=== PATIENT | male | born 1990 | race Caucasian/White ===

== ENCOUNTER 2019-04-25 23:12 | Emergency (ER) | payer BC, OTHER ==
[~2019-04-25] VITALS: Ht 177.8 cm; Wt 70.3 kg
[2019-04-25] MEDS ORDERED: LACTATED RINGERS 1,000 ML IV ONE (23:37)
[2019-04-25 23:59] LABS: BASOPHILS % (AUTO) 0 % (0-10); EOSINOPHILS # (AUTO) 0.2 10^3/uL (0.0-0.3); EOSINOPHILS % (AUTO) 2 % (0-10); HEMATOCRIT 46 % (40-54); HEMOGLOBIN 15.5 G/DL (13.3-17.7); LYMPHOCYTES # (AUTO) 1.5 X 10^3 (1.0-4.0); LYMPHOCYTES % (AUTO) 16 % (12-44); MEAN CORPUSCULAR HEMOGLOBIN 28 PG (25-34); MEAN CORPUSCULAR HGB CONC 34 G/DL (32-36); MEAN CORPUSCULAR VOLUME 82 FL (80-99); MEAN PLATELET VOLUME 9.4 FL (7.4-10.4); MONOCYTES # (AUTO) 0.8 X 10^3 (0.0-1.0); MONOCYTES % (AUTO) 8 % (0-12); NEUTROPHILS % (AUTO) 74 % (42-75); PLATELET COUNT 229 10^3/uL (130-400); RED CELL DISTRIBUTION WIDTH 13.4 % (10.0-14.5); WHITE BLOOD COUNT 9.5 10^3/uL (4.3-11.0)
[2019-04-26 00:21] LABS: ALANINE AMINOTRANSFERASE 28 U/L (0-55); ALBUMIN 4.4 GM/DL (3.2-4.5); ALKALINE PHOSPHATASE 73 U/L (40-136); BILIRUBIN,TOTAL 0.3 MG/DL (0.1-1.0); BUN/CREATININE RATIO 14; CALCIUM 9.4 MG/DL (8.5-10.1); CARBON DIOXIDE 23 MMOL/L (21-32); CHLORIDE 103 MMOL/L (98-107); CREATININE SERUM 1.02 MG/DL (0.60-1.30); GFR ESTIMATED > 60; GLUCOSE 95 MG/DL (70-105); MAGNESIUM 1.6 MG/DL (1.6-2.4); POTASSIUM 3.9 MMOL/L (3.6-5.0); SODIUM 137 MMOL/L (135-145); TOTAL PROTEIN 7.5 GM/DL (6.4-8.2)
--- NOTE | 2019-04-26 00:27 | ED Cardiac General ---
History of Present Illness General Chief Complaint: Dizziness/Syncope Stated Complaint: LIGHT HEADED,SWEATY, SHAKING, NAUSEA Nursing Triage Note: AMBULATORY TO ED ROOM 5 WITH C/O NAUSEA, SHAKY, DIZZY, RAPID HEART RATE WHILE SITTING AT WORK AT 2000. INCREASED STRESSED LATELY WITH BABY IN NICU. TOOK CAFFEINE PILLS APPROX 1600, BUT STATES HE TAKES THEM OFTEN. Source: patient Exam Limitations: no limitations History of Present Illness Date Seen by Provider: Apr 25, 2019 Time Seen by Provider: 23:26 Initial Comments This 28-year-old young man presents to the emergency room with complaints of palpitations and racing heart that started at approximately 20:00. He was sitting at his desk at the time. He suddenly felt nauseated, shaky, sweating, slightly faint, and had sensation of racing heart. His left arm felt a little tight in route. EMS was activated but he declined transport. He feels near normal now. He states the episode lasted more than an hour. He denies any prior episodes. He denies any chest pain. He had subtle shortness of breath. He denies any drugs or alcohol. He uses nicotine vape and caffeine pills. He last took caffeine pills around 18:00. He denies any new exposures or any changes in his routines or products that he uses. Allergies and Home Medications Allergies Coded Allergies: amoxicillin (Verified Allergy, Unknown, 04/25/19) Patient Home Medication List Home Medication List Reviewed: Yes Review of Systems Review of Systems Constitutional: see HPI, diaphoresis EENTM: No Symptoms Reported Respiratory: See HPI Cardiovascular: See HPI Gastrointestinal: No Symptoms Reported Genitourinary: No Symptoms Reported Musculoskeletal: no symptoms reported Skin: see HPI Psychiatric/Neurological: No Symptoms Reported Endocrine: No Symptoms Reported Hematologic/Lymphatic: No Symptoms Reported Past Mortkml-[id number]-[id number] Hx Past Med/Social Hx: Reviewed Nursing Past Med/Soc Hx Patient Social History Alcohol Use: Rarely Uses Recreational Drug Use: No Type Used: Electronic/Vapor Recent Foreign Travel: No Contact w/Someone Who Travel: No Recent Infectious Disease Expo: No Recent Hopitalizations: No Physical Abuse: No Sexual Abuse: No Mistreated: No Fear: No Seasonal Allergies Seasonal Allergies: No Past Medical History Surgeries: No Respiratory: No Cardiac: No Neurological: No Genitourinary: No Gastrointestinal: Yes (ESOPHAGEAL SPASM) Musculoskeletal: No Endocrine: No HEENT: No Cancer: No Psychosocial: No Integumentary: No Blood Disorders: No Physical Exam Vital Signs Vital Signs - First Documented 04/25/19 04/26/19 23:23 01:05 Temp 99.1 Pulse 102 Resp 18 B/P (MAP) 140/108 (119) Pulse Ox 100 Capillary Refill : Less Than 3 Seconds Height, Weight, BMI Height: 5'10.00" Weight: 155lbs. oz. 70.022251py; BMI Method:Stated General Appearance: No Apparent Distress, WD/WN HEENT: PERRL/EOMI, Normal ENT Inspection, Pharynx Normal Neck: Normal Inspection Respiratory: Lungs Clear, Normal Breath Sounds, No Accessory Muscle Use, No Respiratory Distress Cardiovascular: No Edema, No Murmur, Tachycardia Gastrointestinal: Non Tender, Soft Extremity: Normal Inspection, No Pedal Edema Neurologic/Psychiatric: Alert, Oriented x3, No Motor/Sensory Deficits, Normal Mood/Affect, rougher helper II-XII Norm as Tested Skin: Normal Color, Warm/Dry Progress/Results/Core Measures Results/Orders Lab Results Laboratory Tests Test 04/25/19 23:52 Range/Units White Blood Count 9.5 4.3-11.0 10^3/uL Red Blood Count 5.56 4.35-5.85 10^6/uL Hemoglobin 15.5 13.3-17.7 G/DL Hematocrit 46 40-54 % Mean Corpuscular Volume 82 80-99 FL Mean Corpuscular Hemoglobin 28 25-34 PG Mean Corpuscular Hemoglobin Concent 34 32-36 G/DL Red Cell Distribution Width 13.4 10.0-14.5 % Platelet Count 229 130-400 10^3/uL Mean Platelet Volume 9.4 7.4-10.4 FL Neutrophils (%) (Auto) 74 42-75 % Lymphocytes (%) (Auto) 16 12-44 % Monocytes (%) (Auto) 8 0-12 % Eosinophils (%) (Auto) 2 0-10 % Basophils (%) (Auto) 0 0-10 % Neutrophils # (Auto) 7.0 1.8-7.8 X 10^3 Lymphocytes # (Auto) 1.5 1.0-4.0 X 10^3 Monocytes # (Auto) 0.8 0.0-1.0 X 10^3 Eosinophils # (Auto) 0.2 0.0-0.3 10^3/uL Basophils # (Auto) 0.0 0.0-0.1 10^3/uL Sodium Level 137 135-145 MMOL/L Potassium Level 3.9 3.6-5.0 MMOL/L Chloride Level 103 98-107 MMOL/L Carbon Dioxide Level 23 21-32 MMOL/L Anion Gap 11 5-14 MMOL/L Blood Urea Nitrogen 14 7-18 MG/DL Creatinine 1.02 0.60-1.30 MG/DL Estimat Glomerular Filtration Rate > 60 BUN/Creatinine Ratio 14 Glucose Level 95 70-105 MG/DL Calcium Level 9.4 8.5-10.1 MG/DL Corrected Calcium 9.1 8.5-10.1 MG/DL Magnesium Level 1.6 1.6-2.4 MG/DL Total Bilirubin 0.3 0.1-1.0 MG/DL Aspartate Amino Transf (AST/SGOT) 22 5-34 U/L Alanine Aminotransferase (ALT/SGPT) 28 0-55 U/L Alkaline Phosphatase 73 40-136 U/L Troponin I < 0.028 <0.028 NG/ML Total Protein 7.5 6.4-8.2 GM/DL Albumin 4.4 3.2-4.5 GM/DL TSH [place] Testing 1.27 0.35-4.94 UIU/ML My Orders Orders - ANUPAMA LEI MD Cbc With Automated Diff (04/25/19 23:37) Comprehensive Metabolic Panel (04/25/19 23:37) Magnesium (04/25/19 23:37) Thyroid Analyzer (04/25/19 23:37) Troponin I (04/25/19 23:37) Ed Iv/Invasive Line Start (04/25/19 23:37) Lactated Ringers (Lr 1000 Ml Iv Solution (04/25/19 23:37) Monitor-Rhythm Ecg Trace Only (04/26/19 00:17) Ekg Tracing (04/26/19 00:17) Medications Given in ED Current Medications Medications Dose Ordered Sig/Christine Route Start Time Stop Time Status Last Admin Dose Admin Lactated Ringer's 1,000 ml @ 0 mls/hr Q0M ONCE IV 04/25/19 23:37 04/25/19 23:44 DC 04/25/19 23:59 999 MLS/HR Vital Signs/I&O 04/25/19 04/26/19 23:23 01:05 Temp 99.1 99.1 Pulse 102 78 Resp 18 18 B/P (MAP) 140/108 (119) 138/91 (107) Pulse Ox 100 Blood Pressure Mean: 119 Progress Progress Note : Progress Note Workup was unremarkable. Patient's heart rate dropped about 30 bpm after receiving IV fluid. Cause of his palpitations is uncertain but may have been related to a tachyarrhythmia such as SVT. This was discussed with the patient. He was dismissed home in improved condition without symptoms. We also discussed reduction of stimulant use. Departure Impression Primary Impression: Palpitations Disposition: HOME, SELF-CARE Condition: Improved Departure-Patient Inst. Decision time for Depature: 00:59 Referrals: NO,LOCAL PHYSICIAN (PCP) Primary Care Physician Patient Instructions: Palpitations, Supraventricular Tachycardia (SVT) Add. Discharge Instructions: The exact cause of your symptoms is uncertain, but your symptoms may be related to an abnormal heart rhythm such as SVT. If an episode like this occurs again, tried the Valsalva maneuver (bearing down). This may abort the abnormal heart rhythm. If this does not stop your symptoms, presented promptly to the emergency room for assessment and heart rhythm monitoring. Work toward reducing your consumption of stimulants such as nicotine and caffeine. Follow-up with a primary care provider in the next couple of weeks. Drink plenty of clear liquids. Return to emergency room if you have any further problems or concerns. All discharge instructions reviewed with patient and/or family. Voiced understanding. ANUPAMA LEI MD Apr 26, 2019 00:27
[2019-04-26 00:41] LABS: TSH (THYROID ANALYZER) 1.27 UIU/ML (0.35-4.94)
[2019-04-26 01:05] VITALS: BP 138/91
== END 2019-04-26 01:07 | disposition home or self-care (01) ==
LOC: ER 23:16
DX: R00.2 Palpitations (principal); Z88.1 Allergy status to other antibiotic agents
CPT/HCPCS: 36415; 80053; 83735; 84443; 84484; 85025; 93005; 93041